=== PATIENT | female | born 1985 | race Asian ===

== ENCOUNTER 2020-02-26 04:14 | Day surgery (SDC) | payer OTHER, BC ==
[2020-02-25 15:53] VITALS: BMI 21.7
--- OUTSIDE RECORDS SUMMARY | 2020-02-26 04:19 | XMS ---
:1985 [facility] Providers Name Role Phone MD Mina Willams Unavailable Unavailable Re-disclosure Warning The records that you are about to access may contain information from federally- assisted alcohol or drug abuse programs. If such information is present, then the following federally mandated warning applies: This information has been disclosed to you from records protected by federal confidentiality rules (42 CFR part 2). The federal rules prohibit you from making any further disclosure of this information unless further disclosure is expressly permitted by the written consent of the person to whom it pertains or as otherwise permitted by 42 CFR part 2. A general authorization for the release of medical or other information is NOT sufficient for this purpose. The Federal rules restrict any use of the information to criminally investigate or prosecute any alcohol or drug abuse patient.The records that you are about to access may contain highly sensitive health information, the redisclosure of which is protected by Article 27-F of the [facility] Public Health law. If you continue you may haveaccess to information: Regarding HIV / AIDS; Provided by facilities licensed or operated by the [facility] Office of Mental Health; or Provided by the [facility] Office for People With Developmental Disabilities. If such information is present, then the following [facility] mandated warning applies: This information has been disclosed to you from confidential records which are protected by state law. State law prohibits you from making any further disclosure of this information without the specific written consent of the person to whom it pertains, or as otherwise permitted by law. Any unauthorized further disclosure in violation of state law may result in a fine or chcf sentence or both. A general authorization for the release of medical or other information is NOT sufficient authorization for further disclosure. Encounters Encounter Providers Location Date Indications Data Source(s ) Outpatient Attender: MD Enri[facility] 12/26/2019 [facility] 08:[facility]:00 AM Hospital EDT - 12/26/2019 11:59:00 PM EDT Patient discharged. Insurance Providers Payer name Policy type / Policy ID Covered Covered libertarian's Policy Plan Coverage type libertarian ID relationship to Hui Information hui [facility] [id number] [employer] PPO [id number] SP [id number] GHI CBP [id number] [id number] 2 [facility] [id number] [employer]ET[employer] HMO [id number] SP [id number] Emblem Commercial [id number] Health GHI 2 PPO/EPO/HM O Problems, Conditions, and Diagnoses Code Display Name Description Problem Type Effective Data Sour ce(s) Dates E55.9 Vitamin D Vitamin D Diagnosis 12/26/2019 S - New deficiency, deficiency, 08:48:00 AM [facility] unspecified unspecified [facility] N39.0 Urinary tract Urinary tract Diagnosis 12/26/2019 S - Ne w infection, site not infection, site 08:48:00 AM [facility] specified not specified [facility] E11.9 Type 2 diabetes Type 2 diabetes Diagnosis 12/26/2019 S - New mellitus without mellitus without 08:48:00 AM R ochelle complications complication [facility] R80.9 Proteinuria, Proteinuria, Diagnosis 12/26/2019 S - New unspecified unspecified 08:48:00 AM [facility] K76.9 Liver disease, Acute disorder of Diagnosis 12/26/2019 S - New unspecified liver 08:48:00 AM [facility] D50.0 Iron deficiency Anemia, blood loss Diagnosis 12/26/2019 M [facility] - New anemia secondary to 08:48:00 AM Lana mcknighte blood loss [facility] (chronic) E78.5 Hyperlipidemia, Hyperlipidemia, Diagnosis 12/26/2019 [facility] unspecified unspecified 08:48:00 AM [facility] B96.81 Helicobacter pylori Disorder Diagnosis 12/26/2019 [facility] [H. pylori] as the associated with 08:48:00 AM [facility] cause of diseases Helicobacter EDT [facility] classified species elsewhere N28.9 Disorder of kidney Abnormal kidney Diagnosis 12/26/2019 M [facility] - New and ureter, function 08:48:00 AM [facility] unspecified [facility] D64.9 Anemia, unspecified Anemia, Diagnosis 12/26/2019 [facility] - New unspecified 08:48:00 AM [facility] Surgeries/Procedures Procedure Description Date Indications Data Source(s) Venipuncture 12/26/2019 08:56:17 [facility] AM EDT - 12/26/2019 10:00:05 AM EDT Uric Acid, Serum 12/26/2019 08:56:17 [facility] AM EDT - 12/26/2019 08:57:07 AM EDT Results ID Date Data Source [id number] 02/21/2020 09:50:00 AM EDT [facility] Name Value Range Interpretation Description Data Sup porting Code Source(s) Document(s ) SARS [facility] coronavirus 2 RNA This lab was ordered by [facility] and reported by [facility]. ID Date Data Source [id number] 01/01/2020 01:06:31 AM EDT [facility] Name Value Range Interpretation Description Data Sup porting Code Source(s) Document(s ) Clostridium Micro Result Normal (applies Stool [facility] difficile Final Culture to non-numeric Culture Health [Presence] in [place] results) Screen System Stool by Note::NEGATIVE Organism FOR SALMONELLA specific SPECIESNEGATIVE culture FOR SHIGELLA SPECIESNEGATIVE FOR YERSINIA SPECIESNEGATIVE FOR CAMPYLOBACTER SPECIESNEGATIVE FOR VIBRIO SPECIESNEGATIVE FOR PLESIOMONAS SPECIESNEGATIVE FOR E.COLI [id number] FOR AEROMONAS SPECIES ID Date Data Source [id number] 01/01/2020 01:06:31 AM EDT [facility] Name Value Range Interpretation Description Data Sup porting Code Source(s) Document(s ) Deprecated Micro Normal (applies Aerobic [facility] Bacteria Result to non-numeric Culture, Urine Health identified in Final results) System Urine by Culture Aerobe [place] culture Note::< 10,000 CFU/ML ID Date Data Source [id number] 01/01/2020 01:06:31 AM EDT [facility] Name Value Range Interpretation Description Data Source(s ) Supporting Code Document(s ) H.Pylori SEE NOTE Normal (applies to H. Pylori [facility] Antigen, non-numeric Antigen, Stool Health System Stool results) HELICOBACTER PYLORI AG, EIA, STOOL Micro Number: [id number] Status: FinalSpecimen Source: STOOLSpecimen Qu ality: AdequateH.pylori Ag: Not DetectedAntimicrobials, proton pump inhi bitors, andbismuth preparations inhibit H. pylori andingestion up to two weeks prio r to testing maycause false negative results. If clinicallyindicated the test should b e repeated on a newspecimen obtained two weeks after discontinuingtreatment.Refer ence Range: Not Detected THIS TEST WAS PERFORMED AT:[employer] [id number] TSAO,MDReported Date and Time - 12/29/2019 10:22 ID Date Data Source [id number] 01/01/2020 01:06:31 AM EDT [facility] Name Value Range Interpretation Description Data Source(s ) Supporting Code Document(s ) 25Hydroxy 33 ng/mL Normal (applies to 25 Hydroxy D3 [facility] D3 non-numeric Health System results) Reference RangeNot establishedThis test was developed and its analytical performance characteristics have been determined by [email or web address]. It has not been cleared or approved by theFDA. This assay has been validated pursuant to the CLIA regulations and is used for clinical purposes. [id number] < 4 Normal (applies to 25 [facility]xy D2 [facility] non-numeric results) Reference RangeNot establishedThis test was developed and its analytical performance characteristics have been determined by [email or web address]. It has not been cleared or approved by theFDA. This assay has been validated pursuant to the CLIA regulations and is used for clinical purposes.See No te 1Note 1For additional information, please refer to http://education.[employer].com/faq/RNJ247 (This link is being provided for informational/educational p urposes only.)THIS TEST WAS PERFORMED AT:[employer] [id number] TSAO,MDReported Date and Time - 12/29/19 20 10:22 25HydroxyVitaminD 33 ng/mL Normal (applies to 25 Hydroxy [facility] non-numeric results) Vitamin D System Vitamin D, 25-Hydroxy reports concentrat ions of twocommon forms, 25-OHD2 and 25-OHD3. 25-OHD3 indicatesboth endogenous product ion and supplementation.25-OHD2 is an indicator of exogenous sources, suchas d iet or supplementation. Therapy is based onmeasurement of Total 25-OHD, with leve ls <20 ng/mLindicative of Vitamin D deficiency, while levelsbetween 20 ng/mL and 30 ng/mL suggest insufficiency.Optimal levels are > or = 30 ng/mL.Vitamin D is fat-soluble and therefore inadvertentor intentional ingestion of excessively hig h amountscould be toxic. Studies in children and adults suggestblood levels would nee d to exceed 150 ng/mL beforethere is any concern. Idalia MF, Giuseppe NC, Vikas call LUCERO, et al., Evaluation, treatment,and prevention of vitamin D de ficiency: an EndocrineSociety clinical practice guideline. J Clin.Endocrinol. M etab. 2011;96(7):1911-30. ID Date Data Source [id number] 01/01/2020 01:06:31 AM EDT [facility] Name Value Range Interpretation Description Data Sup porting Code Source(s) Document(s ) Hematocrit 39.9 % Normal (applies Hematocrit [facility] [Volume to non-numeric Health Fraction] of results) System Blood Leukocytes 4.6 Below low normal WBC Count [facility] [#/volume] in {10^3_uL Health Unspecified } System specimen by Automated count Hemoglobin 12.9 Normal (applies Hemoglobin [facility] [Mass/volume] in {gm/dL} to non-numeric Health Blood results) System Erythrocytes 4.33 Normal (applies RBC Count [facility] [#/volume] in {10^6_uL to non-numeric Health Blood by } results) System Automated count Erythrocyte mean 92.1 fl Normal (applies MCV [facility] corpuscular to non-numeric Health volume [Entitic results) System volume] by Automated count Erythrocyte mean 32.3 Normal (applies MCHC [facility] corpuscular {gm/dL} to non-numeric Health hemoglobin results) System concentration [Mass/volume] by Automated count Erythrocyte 12.3 % Normal (applies RDW-CV [facility] distribution to non-numeric Health width [Entitic results) System volume] by Automated count Erythrocyte mean 29.8 pg Normal (applies MCH [facility] corpuscular to non-numeric Health hemoglobin results) System [Entitic mass] by Automated count Platelet mean 10.3 fl Normal (applies MPV [facility] volume [Entitic to non-numeric Health volume] in Blood results) System by Automated count Nucleated 0.0 Normal (applies NRBC % [facility] erythrocytes {/100_WB to non-numeric Health [#/volume] in C} results) System Body fluid Platelets 276 Normal (applies Platelet Count [facility] [#/volume] in {10^3_uL to non-numeric Health Plasma by } results) System Automated count Neutrophils/100 46.4 % Below low normal Neutrophil % [facility] leukocytes in Health Blood by System Automated count Lymphocyte 2.1 Normal (applies Lymphocyte # [facility] percent {10^3_uL to non-numeric Health differential } results) System count (procedure) NRBC# 0.00 Normal (applies NRBC # [facility] {10^3_uL to non-numeric Health } results) System Lymphocytes 45.0 % Above high Lymphocyte % [facility] [#/volume] in normal Health Blood by System Automated count Neutrophils 2.1 Below low normal Neutrophil # [facility] [#/volume] in {10^3_uL Health Body fluid } System Eosinophils 0.07 Normal (applies Eosinophil # [facility] [#/volume] in {10^3_uL to non-numeric Health Blood } results) System Monocytes/100 5.2 % Normal (applies Monocyte % [facility] leukocytes in to non-numeric Health Blood results) System Monocytes 0.2 Normal (applies Monocyte # [facility] [#/volume] in {10^3_uL to non-numeric Health Blood by Manual } results) System count Eosinophils/100 1.5 % Normal (applies Eosinophil % Lui darren leukocytes in to non-numeric Health Unspecified results) System specimen ImmatureGranuloc 0.2 % Normal (applies Immature [facility] ytes% to non-numeric Granulocytes % Health results) System ImmatureGranuloc 0.01 Normal (applies Immature [facility] ytes# {10^3_uL to non-numeric Granulocytes # Health } results) System Basophils 0.08 Normal (applies Basophil # [facility] [#/volume] in {10^3_uL to non-numeric Health Blood by } results) System Automated count Basophils/100 1.7 % Above high Basophil % [facility] leukocytes in normal Health Unspecified System specimen by Manual count ID Date Data Source [id number] 01/01/2020 01:06:31 AM EDT [facility] Name Value Range Interpretation Code Description Data Terri rce(s) Supporting Document(s ) HbA1C 4.8 % Normal (applies to HbA1C [facility] non-numeric results) System ID Date Data Source [id number] 01/01/2020 01:06:31 AM EDT [facility] Name Value Range Interpretation Description Data Source(s ) Supporting Code Document(s ) Iron 73 ug/dL Normal (applies to Iron, Serum [facility] [Mass/volum non-numeric Health System e] in Serum results) or Plasma ID Date Data Source [id number] 01/01/2020 01:06:31 AM EDT [facility] Name Value Range Interpretation Description Data Sup porting Code Source(s) Document(s ) Triglyceride 34 mg/dl Below low normal Triglycerides, Lui darren [Mass/volume] Serum Health in Serum or System Plasma Optimal = < 100 mg/dLBoderline High = 15 0 - 199 mg/dLHigh = 200 - 499 mg/dLVery High = > 500 mg/dL Cholesterol 178 mg/dl Normal (applies Cholesterol, Serum [facility] [Mass/volume] in to non-numeric Health S ystem Serum or Plasma results) <200 mg/gx=[id number] mg/dl=border line>240 mg/dl=elevated Cholesterol in LDL 99.2 mg/dL Normal (applies Low Density [facility] [Mass/volume] in to non-numeric Lipoprotein, Healt h System Serum or Plasma results) Calculated OPTIMAL: LESS THAN 100 mg/dLNEAR OPTIMAL : 100 - 129 mg/dLBODERLINE HIGH: 130 - 150 mg/dL Cholesterol in HDL 72.0 mg/dL Normal (applies HDL Cholestero l, [facility] [Mass/volume] in to non-numeric Serum Health S te Serum or Plasma results) Cholesterol in VLDL 6.8 Normal (applies VLDL, Serum [facility] [Mass/volume] in to non-numeric Health S te Serum or Plasma results) CHDRisk 2.47 Normal (applies CHD Risk [facility] to non-numeric Health System results) Lowest <2.9Low 3.0 - 3.6Moderate 3 .7 - 4.6High 4.7 - 5.6Highest >=5.7 ID Date Data Source [id number] 01/01/2020 01:06:31 AM EDT [facility] Name Value Range Interpretation Description Data Sup porting Code Source(s) Document(s ) Chloride 103 Normal (applies Chloride, [facility] [Moles/volume] in mmol/L to non-numeric Serum Health Serum or Plasma results) System Sodium 136 Normal (applies Sodium, Serum [facility] [Moles/volume] in mmol/L to non-numeric Health Serum or Plasma results) System Potassium 4.1 Normal (applies Potassium, [facility] [Mass/volume] in mmol/L to non-numeric Serum Health Serum or Plasma results) System TotalProtein 7.0 Normal (applies Total Protein [facility] mg/dl to non-numeric Health results) System Carbon dioxide, 27.5 Normal (applies CO2, Serum [facility] total mmol/L to non-numeric Health [Moles/volume] in results) System Serum or Plasma Glucose 83 Normal (applies Glucose, [facility] [Mass/volume] in mg/dL to non-numeric Serum Health Serum or Plasma results) System Alkaline 39 Below low normal Alkaline [facility] phosphatase {IU/L} Phosphatase, Health isoenzymes Serum System [Enzymatic activity/volume] in Serum or Plasma by Heat stability Creatinine 0.86 Normal (applies Creatinine, [facility] [Mass/volume] in mg/dl to non-numeric Serum Health Serum or Plasma results) System Urea nitrogen 13 Normal (applies Blood Urea [facility] [Mass/volume] in mg/dl to non-numeric Nitrogen, Health Serum or Plasma results) Serum System DirectBilirubin 0.1 Normal (applies Direct [facility] mg/dl to non-numeric Bilirubin Health results) System Aspartate 16 Normal (applies Aspartate [facility] aminotransferase {IU/L} to non-numeric Transaminase, Heal th [Enzymatic results) Serum System activity/volume] in Serum or Plasma by With P-5'-P Bilirubin.total 0.5 Normal (applies Bilirubin, [facility] [Mass/volume] in mg/dl to non-numeric Serum Total Health Serum or Plasma results) System Calcium 9.0 Normal (applies Calcium, [facility] [Mass/volume] in mg/dl to non-numeric Total Serum Health Serum or Plasma results) System Albumin 4.2 Normal (applies Albumin, [facility] [Mass/volume] in {gm/dl} to non-numeric Serum Health Serum or Plasma results) System I.Phosphorus 3.4 Normal (applies I. Phosphorus [facility] mg/dl to non-numeric Health results) System Alanine 7 Below low normal Alanine [facility] aminotransferase {IU/L} Aminotransfer Health [Enzymatic ase, Serum System activity/volume] in Serum or Plasma Anion gap in Serum 5.50 Below low normal Anion Gap [facility] or Plasma mmol/L Health System Urate 6.6 Normal (applies Uric Acid, [facility] [Mass/volume] in mg/dl to non-numeric Serum Health Serum or Plasma results) System A/GRatio 1.50 Normal (applies A/G Ratio [facility] to non-numeric Health results) System Glomerular 74.37 Normal (applies GFR [facility] filtration to non-numeric Health rate/1.73 sq results) System M.predicted [Volume Rate/Area] in Serum or Plasma by Creatinine-based formula (CKD-EPI) eGFR will provide clinicians with a more accurate indicator of renal function then the serum creatinine. The eGFR is automa tically calculated from an empiric formula (endorsed by the National Kidney Foundat ion) which incorporates age, sex, and race.Clinicians may notice surprisingly low GFR's with serum creatinine valueswithin normal range- particularly in elderly wo men (with low muscle mass).In the hospital setting, the eGFR should add an element of safety in drug dosing, in assessing the risk of IV contrast administration, and in assessing vascular risk.The NKF staging system is as follows:Normal: eGFR >90 with no kidney markersStage 1: eGFR >90 with kidney markers*Stage 2: eGFR 60- 89Stage 3: eGFR 30-59Stage 4: eGFR 15-29Stage 5: eGFR <15 (usually requir ing dialysis)*Markers include: Proteinuria, Hematuria, abnormal imaging-studies, or other blood or urine test abnormalities ID Date Data Source [id number] 01/01/2020 01:06:31 AM EDT [facility] Name Value Range Interpretation Description Data Sup porting Code Source(s) Document(s ) Color Yellow Normal (applies Color [facility] to non-numeric Health results) System Appearance of HAZY Normal (applies Urine [facility] Urine to non-numeric Appearance Health results) System Specific gravity 1.005 Normal (applies Urine Specific [facility] of Urine to non-numeric [facility] results) System pH.. 6.0 Normal (applies pH.. [facility] {pH_unit to non-numeric Health s} results) System Glucose,UA NEG Normal (applies Glucose, UA [facility] to non-numeric Health results) System Protein NEG Normal (applies Protein [facility] [Mass/volume] in to non-numeric Health Serum or Plasma results) System BilirubinUrine NEG Normal (applies Bilirubin [facility] to non-numeric Urine Health results) System Urobilinogen < 2.0 Normal (applies Urobilinogen [facility] [Mass/volume] in to non-numeric UA Health Urine results) System Reference Range: Negative or <=2.0 Ketones NEG Normal (applies Ketones UA [facility] [Mass/volume] in to non-numeric Health S ystem Urine results) Nitrate+Nitrite Negative Normal (applies Nitrite [facility] [Mass/volume] in to non-numeric Health S ystem Unspecified results) specimen RedBloodCells 20 {/HPF} Normal (applies Red Blood Cells [facility] to non-numeric Health System results) Leukocytes 4 {/HPF} Normal (applies White Blood Cells Lui darren [#/volume] in to non-numeric Health Syst em Unspecified results) specimen by Automated count Leukocyte esterase NEG Normal (applies Leukocyte Zaida ase [facility] [Units/volume] in to non-numeric Concentration [facility] System Urine results) UrineBlood LG(3+) Abnormal (applies Urine Blood [facility] to non-numeric Health System results) Mucus RARE Normal (applies Mucus [facility] to non-numeric Health System results) Epithelial cells 9 {/HPF} Normal (applies Epithelial Cells [facility] [Presence] in to non-numeric Health Syst em Unspecified results) specimen by Wet preparation Procedure
[2020-02-26 06:49] LABS: HEMATOCRIT 40.9 % (32.4-45.2); HEMOGLOBIN 13.1 GM/dL (10.7-15.3); MCH 29.5 pg (25.7-33.7); MCHC 32.1 g/dl (32.0-36.0); MEAN PLT VOLUME 8.5 fl (7.5-11.1); PLATELET COUNT 279 K/MM3 (134-434); RBC 4.45 M/mm3 (3.60-5.2); RDW 13.5 % (11.6-15.6); WHITE BLOOD COUNT 4.6 K/mm3 (4.0-10.0)
[2020-02-26 06:58] LABS: INR 0.91 (0.83-1.09); PROTHROMBIN TIME (PATIENT) 11.1 SEC (9.7-13.0)
[2020-02-26 07:01] LABS: ACTIVATED PTT 39.3 SECONDS (25.2-36.5)
[2020-02-26 07:08] LABS: POTASSIUM 4.7 mmol/L (3.5-5.1)
[2020-02-26 07:09] LABS: CALCIUM 8.7 mg/dL (8.5-10.1)
[2020-02-26 07:10] LABS: BLOOD UREA NITROGEN 13.8 mg/dL (7-18)
[2020-02-26 07:13] LABS: CREATININE 0.8 mg/dL (0.55-1.3)
[2020-02-26] MEDS ORDERED: PROPOFOL 20 ML ONE (07:16)
[2020-02-26] MEDS ORDERED: SUCCINYLCHOLINE CHLORIDE 200 MG/10 ML SYRINGE ONE (07:17)
[2020-02-26] MEDS ORDERED: MIDAZOLAM HCL 2 MG/2 ML SINGLE DOSE VIAL ONE (07:17)
--- NOTE | 2020-02-26 07:34 | HP ---
History & Physical Update - History History: No Change - Physical Physical: No Change - Assessment Assessment: No Change - Plan Plan: No Change (H&P reviwed, no changes for hysteroscopy ,polypectomy)
[2020-02-26] MEDS ORDERED: KETOROLAC TROMETHAMINE 30 MG/1 ML VIAL ONE (08:16)
[2020-02-26] MEDS ORDERED: DEXAMETHASONE SOD PHOSPHATE 4 MG/1 ML VIAL ONE (08:16)
[2020-02-26] MEDS ORDERED: IBUPROFEN 800 MG/8 ML IJ IVPB PRN (08:57)
[2020-02-26] MEDS ORDERED: ONDANSETRON 4 MG/2 ML VIAL IVPUSH PRN ×2 (08:57→09:00)
[2020-02-26] MEDS ORDERED: oxyCODONE HCL 5 MG TABLET PO PRN (08:57)
[2020-02-26] MEDS ORDERED: IBUPROFEN 600 MG TABLET (FP) PO PRN (08:57)
--- NOTE | 2020-02-26 08:59 | OP ---
Operative Note - Note: Operative Date: 02/26/20 Pre-Operative Diagnosis: endocervical and EM polyp, ? endocervical fibroid Operation: hysteroscopy, resection of endocervial and endometrail polyp Findings: large endocervical mass, ? fibroid , EM polyp Surgeon: Lucio Gaines Anesthesia: General Specimens Removed: endocervical polp, em polyp Estimated Blood Loss (mls): 25 Instrument used (Debridements only): Symphion Drains & Tubes with Location: none Operative Report Dictated: Yes
[2020-02-26] MEDS ORDERED: ACETAMINOPHEN 325 MG TABLET (FP) PO PRN (09:00)
[2020-02-26] MEDS ORDERED: PROMETHAZINE HCL 25 MG/1 ML VIAL IVPB PRN (09:00)
[2020-02-26] MEDS ORDERED: LACTATED RINGERS SOLUTION 1,000 ML IV SCH (09:00)
[2020-02-26] MEDS ORDERED: ELECTROLYTE-148 SOLN 1,000 ML IV SCH (09:00)
[2020-02-26 10:34] VITALS: TEMP 96.8
[2020-02-26 11:38] VITALS: BP 128/70; PULSE 58
--- NOTE | 2020-03-01 18:26 | PATH ---
Surgical Pathology Report Patient Name: KAZ SAHU [facility]. Rec. #: [id number] /Age/Gender: 1985 (Age: 34) / F Account: [id number] Location: [facility] SURGICAL Taken: 02/26/2020 Received: 02/26/2020 Reported: 03/01/2020 Physicians: Lucio Gaines M.D. Specimen(s) Received ENDOCERVICAL FIBROID ENDOMETRIAL POLYP Clinical History Endocervical polyp, endometrial polyp Final Diagnosis ENDOCERVICAL FIBROID, ENDOMETRIAL POLYP, EXCISION: FRAGMENTS OF ENDOCERVICAL POLYP. FRAGMENT OF ENDOMETRIAL POLYP. SEPARATE PROLIFERATIVE ENDOMETRIUM WITH FOCAL EOSINOPHILIC SYNCYTIAL PAPILLARY CHANGE. Electronically Signed Juancho Suarez M.D. Gross Description Received in formalin, labeled "endocervical fibroid, endometrial polyp" are multiple donnelly, irregular portions of soft tissue measuring 2.3 x 2.3 x 0.3 cm in aggregate. The specimen is submitted in toto in one cassette. VASYL/02/26/2020 porter/02/26/2020
--- NOTE | 2020-03-03 13:22 | OP ---
DATE OF OPERATION: 02/26/2020 PREOPERATIVE DIAGNOSIS: Endometrial and endocervical polyp. POSTOPERATIVE DIAGNOSIS: Endometrial and endocervical polyp, rule out cervical fibroid. SURGEON: Lucio Gaines MD ANESTHESIA: General. ESTIMATED BLOOD LOSS: 50 mL. PROCEDURE: Hysteroscopy, dilation and curettage, resection of the endometrial polyp, possible endocervical fibroid resection. INSTRUMENT USED: Symphion. OPERATION: Patient was taken to the operating room. Under adequate general anesthesia in dorsal lithotomy position, examination under anesthesia revealed external genitalia to be normal. Cervix was clean; no gross lesion. Then uterus was normal size and the adnexa no masses were palpable. Then with a weighted speculum in the vagina anterior lip of the cervix was grasped with single-tooth tenaculum. Cervix was slightly dilated, but it was difficult to pass the dilator through the cervix because of the obstruction of the polyp or fibroid at the endocervical area, but finally the cervix was dilated and then Symphion hysteroscope was introduced. On visualization of the endocervical area and the lower uterine segment there was a large mass, possibility of fibroid versus myoma of the cervix was seen and there was also another endometrial polyp at the fundal area of the uterus noted. Both cornua were identified, and endometrium appeared to be normal. Then with the Symphion resectoscope first the endocervical polyp was resected and removed. Then the hysteroscope was introduced further into the uterine cavity and the polyp in the fundal area also was resected and suctioned. Then endometrial curetting was done with a smooth curet gently and then specimen sent to Pathology. Patient tolerated procedure well, left the OR in good condition. LUCIO GAINES M.D. [id number]
== END 2020-02-26 11:38 | disposition home or self-care (01) ==
LOC: JASU-SURG 04:14
PROVIDERS: ATTEND Obstetrics & Gynecology
PROC: 0UDB8ZX Extraction of Endometrium, Via Natural or Artificial Opening Endoscopic, Diagnostic (ICD-10-PCS; 2020-02-26)
PROC: 0UBC7ZX Excision of Cervix, Via Natural or Artificial Opening, Diagnostic (ICD-10-PCS; principal; 2020-02-26 08:00)
PROC: 0UB97ZX Excision of Uterus, Via Natural or Artificial Opening, Diagnostic (ICD-10-PCS; 2020-02-26 08:00)
DX: N84.0 Polyp of corpus uteri (principal); N84.1 Polyp of cervix uteri
CPT/HCPCS: 36415; 80048; 84703; 85027; 85610; 85730; 88305-TC; 94760

== ENCOUNTER 2020-03-09 15:50 | Observation (INO) | payer OTHER, BC ==
[2020-03-09] MEDS ORDERED: SODIUM CHLORIDE 0.9% 500 ML INFUS.BAG IV ONE ×2 (16:40→18:25)
[2020-03-09] MEDS ORDERED: ESTROGENS,CONJUGATED 25 MG VIAL IVPB ONE ×2 (17:16→17:30)
[2020-03-09 17:33] LABS: BASO % 1.3 % (0-2.0); EOS % 0.5 % (0-4.5); HEMATOCRIT 30.3 % (32.4-45.2); HEMOGLOBIN 9.7 GM/dL (10.7-15.3); LYMPH % 35.3 % (8-40); MCH 29.8 pg (25.7-33.7); MCHC 32.2 g/dl (32.0-36.0); MEAN CELL VOLUME 92.5 fl (80-96); MEAN PLT VOLUME 8.9 fl (7.5-11.1); MONO % 5.4 % (3.8-10.2); NEUT % 57.5 % (42.8-82.8); PLATELET COUNT 235 K/MM3 (134-434); RBC 3.27 M/mm3 (3.60-5.2); RDW 13.5 % (11.6-15.6); WHITE BLOOD COUNT 7.6 K/mm3 (4.0-10.0)
[2020-03-09] MEDS ORDERED: ONDANSETRON 4 MG/2 ML VIAL IVPUSH ONE (17:38)
[2020-03-09 17:39] LABS: INR 1.03 (0.83-1.09); PROTHROMBIN TIME (PATIENT) 12.6 SEC (9.7-13.0)
[2020-03-09 17:42] LABS: ACTIVATED PTT 25.7 SECONDS (25.2-36.5)
[2020-03-09 18:33] LABS: CHLORIDE 110 mmol/L (98-107); POTASSIUM 5.5 mmol/L (3.5-5.1); SODIUM 140 mmol/L (136-145)
[2020-03-09 18:35] LABS: ALBUMIN 2.9 g/dl (3.4-5.0); ANION GAP 5 MMOL/L (8-16); BLOOD UREA NITROGEN 15.1 mg/dL (7-18); CALCIUM 7.8 mg/dL (8.5-10.1); CO2 25 mmol/L (21-32); GLUCOSE,RANDOM 94 mg/dL (74-106)
[2020-03-09 18:38] LABS: CREATININE 0.8 mg/dL (0.55-1.3); SGOT/AST 40 U/L (15-37); SGPT/ALT 10 U/L (13-61)
[2020-03-09 18:40] LABS: BILIRUBIN,TOTAL 0.2 mg/dL (0.2-1)
[2020-03-09 18:41] LABS: ALK PHOS 32 U/L (45-117)
[2020-03-09 20:47] LABS: BASO % 0.3 % (0-2.0); HEMATOCRIT 31.9 % (32.4-45.2); HEMOGLOBIN 10.2 GM/dL (10.7-15.3); LYMPH % 3.7 % (8-40); MCH 29.6 pg (25.7-33.7); MCHC 32.1 g/dl (32.0-36.0); MEAN CELL VOLUME 92.3 fl (80-96); MEAN PLT VOLUME 8.6 fl (7.5-11.1); MONO % 1.2 % (3.8-10.2); NEUT % 94.8 % (42.8-82.8); PLATELET COUNT 230 K/MM3 (134-434); RBC 3.46 M/mm3 (3.60-5.2); RDW 13.3 % (11.6-15.6)
[2020-03-09] MEDS ORDERED: ACETAMINOPHEN 1000 MG/100 ML VIAL (NON FORMULARY) IVPB PRN (21:12)
[2020-03-09] MEDS ORDERED: DEXTROSE 5%-LACTATED RINGERS 1,000 ML IV SCH (21:15)
[2020-03-09 21:32] LABS: BASO % 0.2 % (0-2.0); HEMATOCRIT 29.5 % (32.4-45.2); HEMOGLOBIN 9.6 GM/dL (10.7-15.3); LYMPH % 4.7 % (8-40); MCH 29.9 pg (25.7-33.7); MCHC 32.4 g/dl (32.0-36.0); MEAN CELL VOLUME 92.2 fl (80-96); MEAN PLT VOLUME 8.7 fl (7.5-11.1); NEUT % 94.1 % (42.8-82.8); PLATELET COUNT 214 K/MM3 (134-434); RDW 13.5 % (11.6-15.6); WHITE BLOOD COUNT 17.6 K/mm3 (4.0-10.0)
[2020-03-09 21:40] LABS: EPI CELLS 12 /uL (0-25.1); HYALINE CASTS 1 /uL (0-3.1); URINE APPEARANCE CLEAR; URINE BACTERIA 17 /uL (0-1359); URINE BILIRUBIN NEGATIVE (NEGATIVE); URINE COLOR RED; URINE GLUCOSE (UA) NEGATIVE (NEGATIVE); URINE KETONE 1+ (NEGATIVE); URINE LEUK ESTERASE NEGATIVE (NEGATIVE); URINE NITRITE NEGATIVE (NEGATIVE); URINE PROTEIN NEGATIVE (NEGATIVE); URINE RBC 7275 /uL (0-23.9); URINE UROBILINOGEN 0.2 mg/dL (0.2-1.0); URINE WBC 10 /uL (0-25.8)
[2020-03-09 21:50] LABS: POTASSIUM 3.6 mmol/L (3.5-5.1)
[2020-03-09 21:52] LABS: CALCIUM 7.9 mg/dL (8.5-10.1)
[2020-03-09 21:53] LABS: ALBUMIN 3.1 g/dl (3.4-5.0); BLOOD UREA NITROGEN 12.5 mg/dL (7-18)
[2020-03-09 21:56] LABS: CREATININE 0.6 mg/dL (0.55-1.3)
[2020-03-09 21:57] LABS: BILIRUBIN,TOTAL 0.3 mg/dL (0.2-1)
[2020-03-10 02:00] VITALS: BMI 21.6
[2020-03-10 08:31] LABS: BASO % 0.6 % (0-2.0); EOS % 0.2 % (0-4.5); HEMATOCRIT 30.7 % (32.4-45.2); HEMOGLOBIN 10.2 GM/dL (10.7-15.3); LYMPH % 13.5 % (8-40); MCH 30.3 pg (25.7-33.7); MCHC 33.3 g/dl (32.0-36.0); MEAN CELL VOLUME 90.9 fl (80-96); MEAN PLT VOLUME 9.1 fl (7.5-11.1); MONO % 3.6 % (3.8-10.2); NEUT % 82.1 % (42.8-82.8); PLATELET COUNT 190 K/MM3 (134-434); RBC 3.38 M/mm3 (3.60-5.2); RDW 13.8 % (11.6-15.6); WHITE BLOOD COUNT 11.6 K/mm3 (4.0-10.0)
[2020-03-10 08:57] LABS: POTASSIUM 3.6 mmol/L (3.5-5.1)
[2020-03-10 09:04] LABS: CALCIUM 7.8 mg/dL (8.5-10.1)
[2020-03-10 09:05] LABS: ALBUMIN 2.9 g/dl (3.4-5.0); BLOOD UREA NITROGEN 9.9 mg/dL (7-18)
[2020-03-10 09:08] LABS: CREATININE 0.7 mg/dL (0.55-1.3)
[2020-03-10 09:10] LABS: BILIRUBIN,TOTAL 1.9 mg/dL (0.2-1); TOT PROT 5.4 g/dl (6.4-8.2)
[2020-03-10 09:46] VITALS: PULSE 74
[2020-03-10 12:19] VITALS: BP 108/59; TEMP 99
== END 2020-03-10 15:03 | disposition home or self-care (01) ==
LOC: JER 15:50 → INTOOBSV 21:01 → JERBED 21:01 → UNDOADMOB 21:01 → JERBED 03-10 01:11 → J3W 03-10 01:11 → JERBED 03-10 14:27
PROVIDERS: ADMIT Obstetrics & Gynecology; ATTEND Obstetrics & Gynecology
PROC: 3E0337Z Introduction of Electrolytic and Water Balance Substance into Peripheral Vein, Percutaneous Approach (ICD-10-PCS; principal; 2020-03-10)
PROC: 3E0337Z Introduction of Electrolytic and Water Balance Substance into Peripheral Vein, Percutaneous Approach (ICD-10-PCS; 2020-03-10)
PROC: 3E033GC Introduction of Other Therapeutic Substance into Peripheral Vein, Percutaneous Approach (ICD-10-PCS; 2020-03-10)
DX: N92.0 Excessive and frequent menstruation with regular cycle (principal); I95.1 Orthostatic hypotension; D64.9 Anemia, unspecified; R53.83 Other fatigue; R11.0 Nausea; Z88.8 Allergy status to other drugs, medicaments and biological substances
CPT/HCPCS: 36415; 36430; 76830-TC; 80053; 81003; 84484; 84703; 85025; 85610; 85730; 86850; 86900; 86901; 86922; 93005; 93010; 99285-25; C9803; G0378; J1410; P9058; U0003